=== PATIENT | female | born 1950 | race Caucasian/White ===

== ENCOUNTER 2021-05-22 13:09 | Emergency (ER) | payer MEDICARE, BC ==
[2021-05-22] MEDS ORDERED: Sodium Chloride 0.9% 10 ML Syringe FLUSH PRN (13:39)
[2021-05-22] MEDS ORDERED: Ondansetron 4 MG/2 ML SDV IVPUSH ONE (13:40)
[2021-05-22] MEDS ORDERED: Sodium Chloride 0.9% 1,000 ML IV SCH (13:45)
--- NOTE | 2021-05-22 13:51 | EDM.PDOC ---
ED HPI GENERAL MEDICAL PROBLEM - General Chief Complaint: Neuro Symptoms/Deficits Stated Complaint: possible stroke Time Seen by Provider: 05/22/21 13:30 Source of Information: Reports: Patient History Limitations: Reports: No Limitations - History of Present Illness INITIAL COMMENTS - FREE TEXT/NARRATIVE: patient presented to ER by EMS - due to a possible stroke. was last seen normal at 11:55a ( 90 min prior to arrival ). was standing doing the dishes when she felt suddent onset of dizziness. Needed some help to sit down. no weakness or numbness. h/o stroke in the past - last was 2013. also h/o afib on plavix. Head Pain Score (Numeric/FACES): 3 - Related Data Allergies Allergy/AdvReac Type Severity Reaction Status Date / Time PCN Allergy Other Uncoded 05/22/21 15:46 Home Meds: Home Meds Albuterol Sulfate [Albuterol Sulfate Hfa] 8.5 gm IH 05/22/21 [History] Cyanocobalamin (Vitamin B-12) [Vitamin B-12] 1,000 mcg PO DAILY 05/22/21 [History] Glycopyrrolate/Formoterol Fum [Bevespi Aerosphere Inhaler] 10.7 g INH BID 05/22/21 [History] Levothyroxine Sodium [Levothyroxine] 50 mcg PO DAILY 05/22/21 [History] Levothyroxine Sodium [Levothyroxine] 100 mcg RC 05/22/21 [History] Rosuvastatin Calcium 5 mg PO DAILY 05/22/21 [History] carvediloL [Carvedilol] 6.25 mg PO DAILY 05/22/21 [History] ED ROS GENERAL - Review of Systems Review Of Systems: See Below Constitutional: Reports: No Symptoms HEENT: Reports: No Symptoms Respiratory: Reports: No Symptoms Cardiovascular: Reports: No Symptoms Endocrine: Reports: No Symptoms GI/Abdominal: Reports: Nausea Musculoskeletal: Reports: No Symptoms Skin: Reports: No Symptoms Neurological: Reports: Dizziness Psychiatric: Reports: No Symptoms Hematologic/Lymphatic: Reports: No Symptoms ED EXAM, NEURO - Physical Exam Exam: See Below Exam Limited By: No Limitations General Appearance: Alert, WD/WN, Mild Distress Eye Exam: Bilateral Eye: PERRL Head Exam: Atraumatic Neck: Normal Inspection, Supple Respiratory/Chest: No Respiratory Distress, Lungs Clear Cardiovascular: Normal Peripheral Pulses, Regular Rate, Rhythm, No Edema GI/Abdominal: Normal Bowel Sounds, Soft, Non-Tender Neurological: Alert, Normal Mood/Affect, No Motor/Sensory Deficits, Oriented x 3, Abnormal Gait, Other (slurred dpeech) DTR: 2+: Bicep (R), Bicep (L), Tricep (R), Tricep (L), Achilles (R), Achilles (L) Psychiatric: Normal Affect, Normal Mood Skin Exam: Warm, Other (sweaty) Comments: NIH 0 Course - Vital Signs Last Recorded V/S: Last Vital Signs Temp 36.6 C 05/22/21 13:23 Pulse 75 05/22/21 17:00 Resp 22 H 05/22/21 17:00 BP 135/75 05/22/21 17:00 Pulse Ox 3 L 05/22/21 17:00 - Orders/Labs/Meds Orders: Active Orders 24 hr Category Date Time Status EKG Documentation Completion [RC] ASDIRECTED Care 05/22/21 13:40 Active Head w wo Cont [CT] Stat Exams 05/22/21 13:39 Taken Sodium Chloride 0.9% [Normal Saline] 1,000 ml Med 05/22/21 13:45 Active IV ASDIRECTED Sodium Chloride 0.9% [Saline Flush] Med 05/22/21 13:39 Active 10 ml FLUSH ASDIRECTED PRN Saline Lock Insert [OM.PC] Routine Oth 05/22/21 13:39 Ordered Medication Orders Sodium Chloride (Normal Saline) 1,000 mls @ 999 mls/hr IV ASDIRECTED JULIAN Last Admin: 05/22/21 14:50 Dose: 999 mls/hr Documented by: SUZY Sodium Chloride (Sodium Chloride 0.9% 10 Ml Syringe) 10 ml FLUSH ASDIRECTED PRN PRN Reason: Keep Vein Open Last Admin: 05/22/21 13:40 Dose: 10 ml Documented by: SUZY Labs: Laboratory Tests 05/22/21 05/22/21 Range/Units 13:35 13:35 WBC 9.6 (4.0-11.0) K/uL RBC 4.11 (3.80-5.80) M/uL Hgb 12.8 (11.5-16.5) g/dL Hct 40.9 (37.0-47.0) % MCV 100 H (76-96) fL MCH 31.1 (27.0-32.0) pg MCHC 31.3 (31.0-35.0) g/dL RDW 13.1 (11.0-16.0) % Plt Count 214 (150-500) K/uL MPV 11.3 H (6.0-10.0) fL Sodium 144 (136-145) mmol/L Potassium 4.1 (3.5-5.1) mmol/L Chloride 104 (98-107) mmol/L Carbon Dioxide 32.8 H (21.0-32.0) mmol/L Anion Gap 11.3 (5.0-15.0) mmol/L BUN 16 (8-26) mg/dL Creatinine 0.91 (0.55-1.02) mg/dL Est Cr Clr Drug Dosing TNP Estimated GFR (MDRD) > 60 (>60) MLS/MIN BUN/Creatinine Ratio 17.6 (6-25) Glucose 209 H (74-100) mg/dL Calcium 8.8 (8.5-10.1) mg/dL Troponin I < 0.017 (0.000-0.060) ng/mL Meds: Medications Generic Name Dose Route Start Last Admin Trade Name Freq PRN Reason Stop Dose Admin Sodium Chloride 1,000 mls @ 999 mls/hr 05/22/21 13:45 05/22/21 14:50 Normal Saline IV 999 mls/hr ASDIRECTED JULIAN Administration Sodium Chloride 10 ml 05/22/21 13:39 05/22/21 13:40 Sodium Chloride 0.9% 10 Ml Syringe FLUSH 10 ml ASDIRECTED PRN Administration Keep Vein Open Discontinued Medications Generic Name Dose Route Start Last Admin Trade Name Freq PRN Reason Stop Dose Admin Diphenhydramine HCl 50 mg 05/22/21 15:47 05/22/21 15:59 Diphenhydramine 50 Mg/Ml Sdv IVPUSH 05/22/21 15:48 50 mg ONETIME ONE Administration Diphenhydramine HCl Confirm 05/22/21 16:09 05/22/21 16:26 Diphenhydramine 50 Mg/Ml Sdv Administered 05/22/21 16:10 Not Given Dose 50 mg .ROUTE .STK-MED ONE Meclizine HCl Confirm 05/22/21 14:49 05/22/21 14:35 Meclizine 25 Mg Tab.Chew Administered 05/22/21 14:50 25 mg Dose Administration 25 mg .ROUTE .STK-MED ONE Meclizine HCl Confirm 05/22/21 15:50 05/22/21 15:30 Meclizine 25 Mg Tab.Chew Administered 05/22/21 15:51 25 mg Dose Administration 25 mg .ROUTE .STK-MED ONE Ondansetron HCl 4 mg 05/22/21 13:40 05/22/21 14:40 Ondansetron 4 Mg/2 Ml Sdv IVPUSH 05/22/21 13:41 4 mg ONETIME ONE Administration Ondansetron HCl Confirm 05/22/21 14:21 05/22/21 15:37 Ondansetron 4 Mg/2 Ml Sdv Administered 05/22/21 14:22 Not Given Dose 4 mg .ROUTE .STK-MED ONE Prochlorperazine Edisylate 10 mg 05/22/21 15:26 05/22/21 15:25 Prochlorperazine 10 Mg/2 Ml Sdv IVPUSH 05/22/21 15:27 10 mg ONETIME ONE Administration Prochlorperazine Edisylate Confirm 05/22/21 15:37 05/22/21 15:25 Prochlorperazine 10 Mg/2 Ml Sdv Administered 05/22/21 15:38 10 mg Dose Administration 10 mg .ROUTE .STK-MED ONE - Re-Assessments/Exams Free Text/Narrative Re-Assessment/Exam: upon arrival - she was connected to a monitor vitals showed mild hypertension - but HR WNL NIH scale 0 EKG NSR, no arrhythmias labs - CBC, BMP and trop - WNL CT head w/wo contrast - no e/o acute infarct - but showed a chronic changes in left parietal lobe indicating a chronic infarct. IVF was given nausea controlled with IV Zofran Meclizine IV for dizziness 05/22/21 19:22 patient slept for few hours - feeling much better - resolution of symptoms - no more nausea or dizziness ambulating without problems asking to be d/cd home Departure - Departure Time of Disposition: 19:23 Disposition: Home, Self-Care 01 Condition: Good Clinical Impression: Vertigo - Discharge Information *PRESCRIPTION DRUG MONITORING PROGRAM REVIEWED*: Not Applicable *COPY OF PRESCRIPTION DRUG MONITORING REPORT IN PATIENT NICK: Not Applicable Instructions: Vertigo, Vertigo, [id number] Referrals: PCP,Unknown [Primary Care Provider] - Forms: ED Department Discharge Sepsis Event Note (ED) - Focused Exam Vital Signs: Vital Signs Temp Pulse Resp BP Pulse Ox 05/22/21 17:00 75 22 H 135/75 3 L 05/22/21 16:15 87 22 H 125/68 96 05/22/21 15:30 79 20 145/76 H 98 05/22/21 15:15 67 22 H 149/75 H 94 L 05/22/21 15:00 67 23 H 151/76 H 05/22/21 14:45 63 22 H 153/74 H 05/22/21 14:25 24 H 100 05/22/21 13:23 36.6 C 60 18 159/86 H 96 - Problem List & Annotations (1) Vertigo SNOMED Code(s): 705904352 Code(s): R42 - DIZZINESS AND GIDDINESS Status: Acute Priority: Medium Current Visit: Yes - Problem List Review Problem List Initiated/Reviewed/Updated: Yes - My Orders Last 24 Hours: My Active Orders 05/22/21 13:39 Head w wo Cont [CT] Stat Sodium Chloride 0.9% [Saline Flush] 10 ml FLUSH ASDIRECTED PRN Saline Lock Insert [OM.PC] Routine 05/22/21 13:40 EKG Documentation Completion [RC] ASDIRECTED 05/22/21 13:45 Sodium Chloride 0.9% [Normal Saline] 1,000 ml IV ASDIRECTED - Assessment/Plan Last 24 Hours: My Active Orders 05/22/21 13:39 Head w wo Cont [CT] Stat Sodium Chloride 0.9% [Saline Flush] 10 ml FLUSH ASDIRECTED PRN Saline Lock Insert [OM.PC] Routine 05/22/21 13:40 EKG Documentation Completion [RC] ASDIRECTED 05/22/21 13:45 Sodium Chloride 0.9% [Normal Saline] 1,000 ml IV ASDIRECTED Plan: - take vertigo medications as prescribed - increase fluids intake - follow up with your PCP in 1-2 weeks as needed - return to the ER if symptoms got worse or any concerns
[2021-05-22] MEDS ORDERED: Ondansetron 4 MG/2 ML SDV ONE (14:21)
[2021-05-22] MEDS ORDERED: Prochlorperazine 10 MG/2 ML SDV IVPUSH ONE (15:26)
[2021-05-22] MEDS ORDERED: Prochlorperazine 10 MG/2 ML SDV ONE (15:37)
[2021-05-22] MEDS ORDERED: diphenhydrAMINE 50 MG/ML SDV IVPUSH ONE (15:47)
[2021-05-22] MEDS ORDERED: diphenhydrAMINE 50 MG/ML SDV ONE (16:09)
--- NOTE | 2021-05-23 09:23 | CT ---
DATE OF SERVICE: 05/22/21 CLINICAL DATA: dizziness/ h/o stroke UNENHANCED AND ENHANCED BRAIN CT: Multislice acquisition through the brain without and with IV contrast was performed. No priors. There is diffuse atrophy. There are periventricular lucencies bilaterally consistent with small vessel ischemic change. There is an area of encephalomalacia in the left posterior parietal region consistent with a prior infarct. No masses or mass effect. No intracranial hemorrhage. No evidence of acute or subacute infarct. No abnormal enhancement. No osseous abnormalities. IMPRESSION: No acute intracranial abnormalities. [id number] [facility]
== END 2021-05-22 19:46 | disposition home or self-care (01) ==
LOC: LB.ED 13:09
DX: R42 Dizziness and giddiness (principal); Z88.8 Allergy status to other drugs, medicaments and biological substances; Z79.899 Other long term (current) drug therapy
CPT/HCPCS: 36415; 70470; 80048; 84484; 85027; 93005; 96374; 96375; 99285; A9270; J0780; J1200; J2405; J7030